=== PATIENT | male | born 1955 | race Hispanic/Latino ===

== ENCOUNTER 2018-04-03 08:34 | Inpatient (IN) | payer OTHER ==
--- NOTE | 2018-04-03 08:43 | ED PDOC ---
Arrival/HPI - General Chief Complaint: Altered Mental Status Time Seen by Provider: 04/03/18 08:40 Historian: Patient - History of Present Illness Narrative History of Present Illness (Text): 62 year old male, whose no significant past medical history, who presents to the emergency department via EMS complaining of right sided weakness, facial droop, and hypertensive crisis. Patient states on 04/01/18 at 1300hs, he experienced symptoms of weakness, dizziness, parasthesias and nausea [place] the cruise ship. Evaluation from cruise ship physician revealed patient was seen on 04/02/18. An EKG performed at that time revealed new onset atrial fibrillation & he was evaluated in ICU for 24hrs, where he received aspirin, ramipril, labetalol, ondansetron, cephalexin, and ketorolac, until he remained stable for transfer to a [facility] medical facility. His noted no change in his R upper extremity weakness and dysarthria over the past 24 hrs. Patient was given 10mg of labetolol after SBP was found to be 180s prior to arrival. Time/Duration: < week (3 days) Symptom Onset: Gradual Symptom Course: Unchanged Activities at Onset: Light Context: Other (Cruise ship) Past Medical History - Provider Review Nursing Documentation Reviewed: Yes Family/Social History - Physician Review Nursing Documentation Reviewed: Yes Family/Social History: Unknown Family HX Allergies/Home Meds Allergies/Adverse Reactions: Allergies No Known Allergies Allergy (Verified 04/03/18 08:45) Home Medications: Home Meds Medication Instructions Recorded Confirmed No Known Home Med 04/03/18 04/03/18 Review of Systems - Physician Review All systems were reviewed & negative as marked: Yes - Review of Systems Constitutional: Normal Eyes: Normal ENT: Normal Respiratory: Normal. absent: SOB, Cough Cardiovascular: Normal. absent: Chest Pain Gastrointestinal: Normal. absent: Abdominal Pain Genitourinary Male: Normal. absent: Dysuria, Frequency Musculoskeletal: Normal. absent: Back Pain, Neck Pain Skin: Normal. absent: Rash Neurological: Dizziness, Speech Changes (slurred speech), Facial Droop (rt side facial droop), Other (rt side weakness) Endocrine: Normal Hemo/Lymphatic: Normal Psychiatric: Normal Physical Exam Vital Signs Reviewed: Yes Vital Signs Temp Pulse Resp BP Pulse Ox 04/03/18 11:26 98.2 F 86 18 157/83 H 92 L 04/03/18 09:30 82 18 146/82 93 L 04/03/18 08:40 97.7 F 83 106/76 91 L 04/03/18 08:38 97.7 F 86 18 106/76 97 Temperature: Afebrile Blood Pressure: Normal Pulse: Regular Respiratory Rate: Normal Appearance: Positive for: Well-Appearing, Non-Toxic, Comfortable Pain Distress: None Mental Status: Positive for: Alert and Oriented X 3 - Systems Exam Head: Present: Atraumatic, Normocephalic Pupils: Present: PERRL Extroacular Muscles: Present: EOMI Conjunctiva: Present: Normal Mouth: Present: Moist Mucous Membranes Neck: Present: Normal Range of Motion Respiratory/Chest: Present: Clear to Auscultation, Good Air Exchange. No: Respiratory Distress, Accessory Muscle Use Cardiovascular: Present: Regular Rate and Rhythm, Normal S1, S2. No: Murmurs Abdomen: No: Tenderness, Distention, Peritoneal Signs Back: Present: Normal Inspection Upper Extremity: Present: Normal Inspection. No: Cyanosis, Edema Lower Extremity: Present: Normal Inspection. No: Edema Neurological: Present: GCS=15, CN II-XII Intact, Other (Right sided upper extremity weakness, slight dysarthria) Skin: Present: Warm, Dry, Normal Color. No: Rashes Psychiatric: Present: Alert, Oriented x 3, Normal Insight, Normal Concentration Medical Decision Making ED Course and Treatment: 04/03/18 09:01 Impression: 62 year old male presents to the Emergency department complaining of rt sided weakness, facial droop, and HTN crisis. Differential Diagnoses Include But Are not Limited to: CVA/TIA(secondary to possible PFO) Hypertensive Emergency/Urgency Atrial Fibrillation Plan: -- Labs -- Troponin -- CT head -- EKG -- IVF -- CXR -- Reassess and disposition Progress Notes: 04/03/18 09:46 Patient noted to be in rate controlled Atrial fibrillation 91 bpm. Imaging reviewed with [facility] revealing age appropriate cortical atrophy. Pending lab results. 04/03/18 10:53 Labs reviewed. Spoke to Dr. Abarca(PCP) who will come down and evaluate patient in ED. He requests Dr. Melba Rice(neurology) & Dr. Bashir(cardiology) for consult. Swallow study performed with patient unsuccessful. Will administer aspirin rectally. - Lab Interpretations Narrative Lab Interpretation (Text): 04/03/18 10:33 Chest X-ray reviewed, shows: IMPRESSION: Cardiomegaly. No acute pulmonary disease appreciable. No pulmonary vascular congestion. Lab Results: 04/03/18 09:40 04/03/18 09:40 Lab Results 04/03/18 09:46: POC Glucose (mg/dL) 115 H 04/03/18 09:40: Sodium 140, Potassium 4.4, Chloride 107, Carbon Dioxide 23, Anion Gap 15, BUN 19, Creatinine 1.1, Est GFR ( Amer) > 60, Est GFR (Non- Af Amer) > 60, Random Glucose 113 H, Calcium 8.9, Total Bilirubin 1.3, AST 27, ALT 30, Alkaline Phosphatase 57, Troponin I 0.04, Total Protein 7.6, Albumin 4.0 , Globulin 3.6, Albumin/Globulin Ratio 1.1, Triglycerides 243 H, Cholesterol 179 , LDL Cholesterol Direct 112, HDL Cholesterol 28 L 04/03/18 09:40: PT 12.6 H, INR 1.09, APTT 29.0 04/03/18 09:40: WBC 9.2, RBC 5.16, Hgb 15.3, Hct 46.7, MCV 90.5, MCH 29.7, MCHC 32.8, RDW 14.8 H, Plt Count 142, MPV 10.8, Gran % 74.1 H, Lymph % (Auto) 17.6 L , Angelina % (Auto) 7.9 H, Eos % (Auto) 0.3 L, Baso % (Auto) 0.1, Gran # 6.81 H, Lymph # (Auto) 1.6, Angelina # (Auto) 0.7 H, Eos # (Auto) 0.0, Baso # (Auto) 0.01 - RAD Interpretation Radiology Orders: 04/03/18 08:47 HEAD W/O CONTRAST [CT] Stat CHEST PORTABLE [RAD] Stat - Medication Orders Current Medication Orders: Amlodipine Besylate (Norvasc) 5 mg PO DAILY [facility] Last Admin: 04/04/18 08:16 Dose: 5 mg MAR Pulse and Blood Pressure Document 04/04/18 08:16 (Rec: 04/04/18 08:17 [id number]) Pulse Pulse Rate (60-90) 87 Blood Pressure Blood Pressure (100/60-150/90) 157/104 Aspirin (Aspirin Chewable) 81 mg PO DAILY [facility] Last Admin: 04/04/18 09:16 Dose: 81 mg Atorvastatin Calcium (Lipitor) 80 mg PO DIN [facility] Last Admin: 04/03/18 17:37 Dose: 80 mg Enoxaparin Sodium (Lovenox) 40 mg SC DAILY [facility] PRN Reason: Protocol Last Admin: 04/04/18 09:16 Dose: 40 mg Subcutaneous Administrations Document 04/04/18 09:16 VM (Rec: 04/04/18 09:16 VM [id number]) Injection Site MAR Injection Site Left Abdomen Charges for Administration # of Subcutaneous Administrations 1 Sodium Chloride (Sodium Chloride 0.45%) 1,000 mls @ 40 mls/hr IV .Q24H [facility] Last Admin: 04/03/18 11:25 Dose: 40 mls/hr eMAR Start Stop Document 04/03/18 11:25 [employer] (Rec: 04/03/18 11:26 [employer] [id number]) Intravenous Solution Start Date 04/03/18 Start Time 11:26 Labetalol HCl (Trandate) 10 mg IV Q6 PRN PRN Reason: Diastolic BP>96 Discontinued Medications Aspirin (Aspirin Supp) 300 mg STAT STA Stop: 04/03/18 10:52 Last Admin: 04/03/18 11:14 Dose: 300 mg MAR Pain/Vitals Document 04/03/18 11:14 [employer] (Rec: 04/03/18 11:14 [employer] [id number]) Pain Reassessment Is This A Pain ReAssessment? Yes Sodium Chloride (Sodium Chloride 0.9%) 1,000 mls @ 100 mls/hr IV .Q10H [facility] Last Admin: 04/03/18 09:11 Dose: 100 mls/hr eMAR Start Stop Document 04/03/18 09:11 [employer] (Rec: 04/03/18 09:12 [employer] [id number]) Intravenous Solution Start Date 04/03/18 Start Time 09:11 End Date 04/03/18 Ibuprofen (Motrin Tab) 400 mg PO ONCE ONE Stop: 04/04/18 02:27 Last Admin: 04/04/18 02:34 Dose: 400 mg MAR Pain/Vitals Document 04/04/18 02:34 CDL (Rec: 04/04/18 02:36 CD [id number]) Pain Reassessment Is This A Pain ReAssessment? No Sleep Is patient sleeping during reassessment? No Presence of Pain Presence of Pain Yes Pain Scale Used Pain Scale Used Numeric Location Left, Right or Bilateral Right Pain Location Body Site Foot Description Intermittent Intensity 6 Scale Used Numeric Alleviating Factors Medication Ondansetron HCl (Zofran Inj) 4 mg IVP STAT STA Stop: 04/03/18 11:06 Last Admin: 04/03/18 11:16 Dose: 4 mg IVP Administration Document 04/03/18 11:16 [employer] (Rec: 04/03/18 11:16 [facility] [place] [id number]) Charges for Administration # of IVP Administrations 1 NIHSS Scale ([place]) Time Performed: 09:00 - How Severe is the Stoke 24 hours post onset S/S Level of Consciousness: 0=Alert LOC to Questions: 0=Both comments correct LOC to commands: 0=Obeys both correctly Best Gaze: 0=Normal Visual: 0=No visual loss Facial: 2=Partial (lower face paralysis) Motor Arm - Left: 0=No drift Motor Arm - Right: 1=Drift noted before 10 sec Motor Leg - Left: 0=No drift Motor Leg - Right: 0=No drift Limb Ataxia: 0=Absent Sensory: 0=Normal Best Language: 1=Mild to moderate aphasia Dysarthia: 1=Mild to moderate slurring Extinction & Inattention (Neglect): 0=Normal, no object Score: 5 Risk Level: Mod Stroke Risk rTPA Inclusion/Exclusion - Refusal of Treatment Patient Refused Treatment: No - Inclusion Criteria for Altepase Patient is 18 years or Older: Yes The Clinical Diagnosis of Ischemic Stroke That is Causing a Potentially Disabling Neurological Deficit: Yes Time of Onset is Well Established to be Less Than 270 Minute Before Treatment Would Begin: No Risk/Benefit Discussed With Patient/Family Member Present: Yes - Exclusion Criteria for Altepase Uncontrolled Hypertension at Time of Treatment (Systolic BP above 185 or Diastolic BP above 110 mmHg): No Active Internal Bleeding: No Known Bleeding Diathesis Including but Not Limited to: Platelets Below 100,000/ mm,PTT Above 40 sec After Heparin Use, Current Use of Oral Anitcoagulant With INR Greater Than 1.7 or PT Greater Than 15 secs: No Evidence of an Intracranial Hemorrhage: No Evidence of Major Acute Infarct With Signs Greater Than 1/3 MCA Territory: No Suspicion of Subarachnoid Hemorrhage on Pretreatment Evaluation Even if CT Head Negative For Hemorrhage: No - Scribe Statement The provider has reviewed the documentation as recorded by the Scribe Yolie Dunn All medical record entries made by the Scribe were at my direction and personally dictated by me. I have reviewed the chart and agree that the record accurately reflects my personal performance of the history, physical exam, medical decision making, and the department course for this patient. I have also personally directed, reviewed, and agree with the discharge instructions and disposition. Disposition/Present on Arrival - Present on Arrival Any Indicators Present on Arrival: No History of DVT/PE: No History of Uncontrolled Diabetes: No Urinary Catheter: No History of Decub. Ulcer: No - Disposition Have Diagnosis and Disposition been Completed?: Yes Diagnosis: CVA (cerebral vascular accident), Atrial fibrillation Disposition: HOSPITALIZED Disposition Time: 10:14 Patient Plan: Admission Patient Problems: Current Active Problems Problem Status Onset CVA (cerebral vascular accident) Acute Atrial fibrillation Acute Condition: STABLE
[2018-04-03] MEDS ORDERED: Sodium Chloride 0.9% 1,000 ML IV SCH (09:00)
--- NOTE | 2018-04-03 09:44 | CT ---
Date of service: 04/03/2018 PROCEDURE: CT HEAD WITHOUT CONTRAST. HISTORY: R sided weakness facial droop since wednesday COMPARISON: None available. TECHNIQUE: Axial computed tomography images were obtained through the head/brain without intravenous contrast. Radiation dose: Total exam DLP = 919.86 mGy-cm. This CT exam was performed using one or more of the following dose reduction techniques: Automated exposure control, adjustment of the mA and/or kV according to patient size, and/or use of iterative reconstruction technique. FINDINGS: HEMORRHAGE: No intracranial hemorrhage. BRAIN: Good corticomedullary differentiation is seen. Proportional, diffuse expansion of the ventriculosulcal and cisternal spaces is appreciated with white matter lucency compatible with diffuse cerebral atrophy and chronic microangiopathy. No suspicious extra-axial fluid collection is identified and the midline brain anatomy appears grossly nonfocal as imaged. There is no mass effect throughout. VENTRICLES: Unremarkable. No hydrocephalus. CALVARIUM: Unremarkable. PARANASAL SINUSES: Unremarkable as visualized. No significant inflammatory changes. MASTOID AIR CELLS: Unremarkable as visualized. No inflammatory changes. OTHER FINDINGS: None. IMPRESSION: Age related neuro degenerative findings are identified which appear age-appropriate. No definite acute intracranial findings. Follow-up CT or MRI are available if clinically warranted.
[2018-04-03 09:52] LABS: INR 1.09; PROTHROMBIN TIME 12.6 SECONDS (9.4-12.5)
[2018-04-03 10:00] LABS: ALB/GLOB RATIO 1.1 (1.1-1.8); ALT/SGPT 30 U/L (7-56); AST/SGOT 27 U/L (17-59); BLOOD UREA NITROGEN 19 mg/dL (7-21); CALCIUM 8.9 mg/dL (8.4-10.5); GFR NON-AFRICAN AMERICAN > 60; HDL CHOLESTEROL 28 mg/dL (29-60)
--- NOTE | 2018-04-03 10:10 | RAD ---
Date of service: 04/03/2018 HISTORY: Code Stroke COMPARISON: Portable chest 04/03/2018. FINDINGS: LUNGS: No active pulmonary disease. PLEURA: No significant pleural effusion identified, no pneumothorax apparent. CARDIOVASCULAR: Cardiomegaly. No definite pulmonary vascular congestion. OSSEOUS STRUCTURES: No significant abnormalities. VISUALIZED UPPER ABDOMEN: Normal. OTHER FINDINGS: None. IMPRESSION: Cardiomegaly. No acute pulmonary disease appreciable. No pulmonary vascular congestion.
[2018-04-03 10:11] LABS: LDL CHOLESTEROL 112 mg/dL (0-129); TROPONIN I 0.04 ng/mL
[2018-04-03 10:15] LABS: BASO # 0.01 K/mm3 (0.0-2.0); BASO % 0.1 % (0.0-3.0); EOS % 0.3 % (1.5-5.0); GRAN # 6.81 (1.4-6.5); GRAN % 74.1 % (50.0-68.0); HEMOGLOBIN 15.3 g/dL (14.0-18.0); LYMPH # 1.6 (1.2-3.4); LYMPH % 17.6 % (22.0-35.0); MEAN CELL VOLUME 90.5 fl (80.0-105.0); MEAN CORPUSCULAR HEMOGLOBIN 29.7 pg (25.0-35.0); MEAN CORPUSCULAR HGB CONC 32.8 g/dl (31.0-37.0); MEAN PLATELET VOLUME 10.8 fl (7.0-11.0); MONO # 0.7 (0.1-0.6); MONO % 7.9 % (1.0-6.0); RBC 5.16 10^6/uL (3.5-6.1); RED CELL DISTRIBUTION WIDTH 14.8 % (11.5-14.5); WHITE BLOOD COUNT 9.2 10^3/ul (4.5-11.0)
[2018-04-03] MEDS: Enoxaparin 40 mg Syringe SC SCH (11:16)
[2018-04-03] MEDS: Sodium Chloride 0.45% 1,000 ML IV SCH (11:25)
[2018-04-03 11:53] VITALS: BMI 35.6
--- NOTE | 2018-04-03 15:53 | HP ---
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 He is a 62-year-old white man with no significant past medical history except he is a little bit overweight complaining of right-sided weakness, facial droop and hypertensive crisis. Some of the symptoms have seemed to subside a little bit. He is weak. He was dizzy. He had some nauseousness on the crew ship. He has been doing this for 24 to 48 hours already. An EKG performed on the ship showed new-onset atrial fibrillation. As far as he was concerned, he never had atrial fibrillation before. He was in the ICU already for 24 hours; given aspirin, ramipril, labetalol, Zofran cephalexin, Ketorolac for pain. He has no pain at this time, possibly a little bit of improvement of some of the weakness and changes in speech. His right upper extremity and right lower extremity are a little bit weaker than the left side, but maybe slightly improved and speech is a little bit better. He did get labetalol and the blood pressure was elevated in the 180s. Presently, the blood pressure is fine without medications here in the hospital emergency room. PAST MEDICAL HISTORY: He does not have any. ALLERGIES: NO KNOWN DRUG ALLERGIES. PAST SURGICAL HISTORY: No surgeries. FAMILY HISTORY: Nothing to speak of. MEDICATIONS: None. REVIEW OF SYSTEMS: No vision issues or hearing issues. He did have a speech issue and right facial droop which has resolved a bit. No shortness of breath or cough. No chest pain or palpitations that he could feel even though it shows atrial fibrillation on the telemetry monitor. He did have some nauseousness, it is better now. No abdominal pain. The nauseousness went away. No vomiting. No problems urinating. No back pain or neck pain. No rashes or ulcers. He was dizzy. He did have speech changes, slurred speech, facial droop and right-sided weakness. No sweating. No anxiety or depression. PHYSICAL EXAMINATION: VITAL SIGNS: He has a 97.7 temperature, 83 pulse, 106/76 blood pressure, although on the crew ship, it was as high as 180. His pulse ox is between 97 and 91, now it is 93. I will definitely get oxygen while he is here. GENERAL: He is well appearing, nontoxic, comfortable, resting in bed in the ER. He is alert and oriented x3, comfortable, no acute distress. No chest pain or shortness of breath. HEENT: His head is atraumatic, normocephalic. His extraocular muscles are intact. Pupils equal, reactive to light. Throat is moist. He smiles well. Tongue is midline. No facial droop at this time. HEART: Regular rate. Normal S1, S2. LUNGS: Clear to auscultation bilaterally. No wheezes, rhonchi or rales. ABDOMEN: Soft, morbidly obese, nontender. Positive bowel sounds. No guarding, no rebound, no CVA tenderness. EXTREMITIES: He is no edema in bilateral lower extremities. NEUROLOGICAL: GCS is 15. Cranial II-XII grossly intact. Normal speech. Right-sided weakness is present, maybe it is a 3/5 strength versus the left side, which is 5/5. Alert and oriented x3, pleasant. SKIN: Warm and dry. No apparent rashes or ulcers. He has got atrial fibrillation, CVA versus TIA, hypertensive emergency. he will have a consult with Cardiology and Neurology. He had tests done. He has 140 sodium, potassium 4.4, BUN 90, creatinine 1.1, GFR is greater than 60, sugar is 115 and 113, calcium is 8.9, total bili is 1.3, AST is 27, ALT 30, alkaline phosphatase 57. Troponin I 0.04. Total protein 7.6, albumin is 4, globulin 3.6. Triglyceride is a little bit high at 243. Cholesterol is good at 179, LDL is 112, HDL is 28. He has a 1.09 INR. His white count is 9.2, hemoglobin 15.3, hematocrit 46.7, platelets of 142. He had a head CAT scan which showed age-related neuro degenerative findings identified which appear age-appropriate. No definite acute intracranial findings and this is about 48 hours after the start of this. Chest x-ray showed cardiomegaly, no acute pulmonary disease. No pulmonary vascular congestion. He will be on oxygen and will be monitoring his blood pressure. We will get Physical Therapy involved, Neurology involved and Cardiology involved and hopefully, he will improve. He might need to go to a [facility] for physical therapy. He is from [place], [place] and we will see how he does. This is a patient who comes in with a CVA picture versus T TIA with right-sided weakness. He did have slurred speech, which has resolved. He has new-onset atrial fibrillation. Blood pressure, was a hypertensive emergency on a crew ship. Baljinder Abarca DO MTDD
--- NOTE | 2018-04-03 16:56 | MRI ---
Date of service: 04/03/2018 PROCEDURE: Brain MRI without contrast HISTORY: cva COMPARISON: Noncontrast head CT 04/03/2018. TECHNIQUE: Multiplanar, multisequence MR images of the brain were obtained without intravenous contrast enhancement. FINDINGS: The study is suboptimal due to technical failure related to power search. Only diffusion-weighted and T2 weighted axial sequences were acquired. No mass effect or cortical edema is identified and mild diffuse cerebral atrophy chronic microangiopathy are identified instead. However, there is restricted diffusion identified at the inferior right mid sella compatible with an acute subacute infarction. No mass effect at this time. No evidence of an acute or subacute cerebellar or cerebral infarct although a chronic lacune is seen the left cerebellum inferiorly. Additional sequences can be acquired when the MR system is repaired oral and transferred to outside institution. IMPRESSION: Suboptimal examination due to technical failure related to power search. An acute subacute inferior right medulla infarct is appreciated. No mass effect. Chronic lacune left cerebellum. Age related neuro degenerative changes primarily affecting the cerebrum. Full brain MRI can be performed once MR system is available or are transferred to outside institution.
[2018-04-04 06:26] LABS: HEMOGLOBIN 14.4 g/dL (14.0-18.0); MEAN CELL VOLUME 92.7 fl (80.0-105.0); MEAN CORPUSCULAR HGB CONC 31.3 g/dl (31.0-37.0); MEAN PLATELET VOLUME 10.6 fl (7.0-11.0); RBC 4.96 10^6/uL (3.5-6.1); WHITE BLOOD COUNT 8.7 10^3/ul (4.5-11.0)
[2018-04-04 06:41] LABS: ALB/GLOB RATIO 1.1 (1.1-1.8); ALBUMIN 3.8 g/dL (3.0-4.8); ALT/SGPT 23 U/L (7-56); AST/SGOT 24 U/L (17-59); BLOOD UREA NITROGEN 22 mg/dL (7-21); CALCIUM 8.7 mg/dL (8.4-10.5); GFR NON-AFRICAN AMERICAN > 60
--- NOTE | 2018-04-04 08:23 | CON ---
DATE: 04/03/2018 CHIEF COMPLAINT: Right-sided weakness, right facial droop. HISTORY OF PRESENT ILLNESS: A 62-year-old man with no significant past medical history. He was on a cruise ship when he started having some dizziness and felt confused and started to have some right-sided weakness, right facial droop and also found elevated systolic and diastolic blood pressures on the ship, who was brought into the hospital, was noted to have elevated systolic and diastolic blood pressures and also had right upper extremity weakness with some dysarthria. On Neurology exam, currently still has some right pronator drift and some very mild dysarthria but follow simple commands. PAST MEDICAL HISTORY: As above. SOCIAL HISTORY: No illicit drug use, smoking or EtOH abuse. REVIEW OF SYSTEMS: A 14-point review of system is negative except as per the HPI. FAMILY HISTORY: Noncontributory. ALLERGIES: NO KNOWN DRUG ALLERGIES. MEDICATIONS: Reviewed by nurse per reconciliation sheet. LABORATORY DATA: Sodium is 140, potassium 4.4, chloride of 107, carbon dioxide of 23, BUN 19, creatinine 1.1. Random glucose of 113. Triglycerides 243, LDL 112, HDL is 20, which is low. PHYSICAL EXAMINATION: GENERAL: The patient is sitting up in bed, in no acute distress. VITAL SIGNS: Temperature 97.7, pulse rate 84, blood pressure 138/98, respiratory rate 19, oxygen saturation 94% via room air. HEENT: Atraumatic, normocephalic. PERRLA. Extraocular muscles intact. NECK: Supple. No JVD. No adenopathy noted. LUNGS: Clear to auscultation. No adventitious sounds. HEART: S1, S2. Normal rate and rhythm. No murmurs, rubs or gallops. ABDOMEN: Soft, nontender and nondistended. Bowel sounds are present. EXTREMITIES: No clubbing. No cyanosis. Peripheral pulses 2+ felt bilaterally. NEUROLOGIC: The patient is alert and oriented to person, place, month and year. His speech is slightly dysarthric. No aphasia noted. Motor exam: Has a right pronator drift when compared to the left. Moves all extremities equally except for a mild 4+/5 right-sided weakness when compared to the left. Right toes are upgoing. Sensory exam: Light touch, pinprick, proprioception and vibration are intact except for decreased light touch sensation on the right side of the face when compared to the left. Coordination: [id number] intact. No dysmetria noted. Gait is deferred for now. ASSESSMENT AND PLAN: This is a 62-year-old man with no significant past medical history, was on a cruise ship, had dizziness and dysarthria in confusional state with right-sided upper extremity weakness and right facial droop, who was brought to the hospital. CAT scan of the head showed no acute intracranial abnormality. Based on his neurological exam, his left anterior lacunar infarct secondary to diffuse atherosclerotic disease, uncontrolled hypertension. At this time, we will recommended; 1. Aspirin 81, atorvastatin 80 for 21 days then reduce to 40 mg. 2. MRI of the brain and head as well as MRI of the neck to assess for any structural abnormalities causing the stroke. 3. Keep his systolic blood pressure 120s over 24 hours. 4. Keep his systolic blood pressure between 130s to 140s and diastolics 70s to 80s. 5. Physical therapy, Occupational therapy evaluation and speech therapy. 6. Echocardiogram and follow up and continue current present medical management. Thank you for this consult. Umesh Rice MD
--- NOTE | 2018-04-04 09:02 | PN ---
DATE: 04/04/2018 SUBJECTIVE: I saw him resting comfortably in bed. He slept fairly well. He still has the same deficit on the right side as he did yesterday. He is on aspirin, Lipitor, Lovenox and IV fluid and I added Norvasc this morning because his blood pressure was a little elevated. PHYSICAL EXAMINATION: VITAL SIGNS: He has a 97.9 temp, 86 pulse, 157/104 blood pressure, 20 respiratory rate, 94% O2 sat on room air. He was given Norvasc this morning 5 mg hoping for the blood pressure to decrease. Otherwise, we will give him some labetalol. Waiting for Cardiology to see him. HEENT: Head is atraumatic, normocephalic. GENERAL: He is alert and talking. HEART: Regular rate. LUNGS: Decreased breath sounds. ABDOMEN: Soft, nontender. Positive bowel sounds. EXTREMITIES: No edema, but the right side is weaker. LABORATORY DATA: He has 8.7 white count, 14.4 hemoglobin, 46 hematocrit with 121 platelets. He has a 141 sodium, potassium 4.5, BUN 42, creatinine 1.2, GFR is greater than 60, sugar is 103, calcium is 8.7, total bili is 1.5, AST is 24, ALT is 23, alk phos 58, total protein is 7.3. The MRI of the brain was just redone. The first one showed inappropriate power for the MRI to be done correctly, so it was redone. ASSESSMENT AND PLAN: Neurology is seeing the patient. Waiting for Cardiology to see the patient. I am also trying to adjust medicines for his elevated blood pressure. It was just given a stat dose of Norvasc 5. If that does not do it, I will add labetalol until Cardiology was seen. He is here with a new stroke, hypertension, atrial fibrillation. Baljinder Abarca DO
[2018-04-04] MEDS: Enoxaparin 40 mg Syringe SC SCH (09:16)
--- NOTE | 2018-04-04 12:34 | PN ---
DATE: 04/04/2018 NEUROLOGY FOLLOWUP CHIEF COMPLAINT: Followup for right-sided weakness, right facial droops. SUBJECTIVE: The patient currently has some mild residual dysarthria and right pronator drift. 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 He had elevated diastolic blood pressure this morning. Awaiting Cardiology input for medication adjustment. PAST MEDICAL HISTORY: No significant past medical history. SOCIAL HISTORY: No illicit drug use, smoking or EtOH abuse at this time except for social drinker. REVIEW OF SYSTEMS: Fourteen-point review of systems is negative except as per the HPI. FAMILY HISTORY: Noncontributory. ALLERGIES: NO KNOWN DRUG ALLERGIES. MEDICATIONS: Reviewed by nurses' reconciliation sheet. LABORATORY DATA: Sodium is 141, potassium 4.4, chloride , carbon dioxide 26, BUN of 22, creatinine 1.2, random glucose of 103, A1c is 5.9. PHYSICAL EXAMINATION: VITAL SIGNS: Temperature of 97.9, pulse rate of 86, blood pressure of 146/92, respiratory rate of 20, oxygen saturation 95% by room air. GENERAL: The patient is sitting up in bed, in no acute distress. HEENT: Atraumatic, normocephalic. PERRLA. Extraocular muscles intact. NECK: Supple. No JVD, no adenopathy noted. LUNGS: Clear to auscultation. No adventitious sounds. HEART: S1, S2. Normal rate and rhythm. No murmurs, rubs or gallops. ABDOMEN: Soft, nontender and nondistended. Bowel sounds are present. EXTREMITIES: No clubbing. No cyanosis. Peripheral pulses 2+ felt bilaterally. NEUROLOGIC: The patient is alert and oriented to person, place, month and year. Speech is slightly dysarthric. No aphasia noted. Motor exam has right pronator drift when compared to left. Moves all extremities equally except for a mild 4+/5 right-sided weakness when compared to the left. Right toes are upgoing. Sensory exam: Light touch, pinprick, proprioception and vibration are intact except for decreased light touch sensation on right side of the face when compared to the left. Coordination: [id number] intact. No dysmetria noted. Gait is deferred for now. ASSESSMENT AND PLAN: This is a 62-year-old man with no significant past medical history, who was on a cruise ship, had acute onset of dizziness and dysarthria and questionable confusional state with right-sided upper extremity weakness and right facial droop, who was brought to the hospital. 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 At this time, I recommend, 1. Aspirin 81, atorvastatin 80 mg for 21 days, then it can reduce to 40 mg. 2. Keep systolic blood pressures between 130s-140s systolic and diastolic 70-80s. 3. Cardiology evaluation for blood pressure adjustment and echocardiogram. 4. Physical therapy, occupational therapy evaluation and recommends that he got to physical therapy at a place nearby him in [facility]. Thank you for this consult. Umesh Rice MD
[2018-04-04] MEDS: Labetalol 5 mg/ml Inj 20ML IV PRN (13:25)
--- NOTE | 2018-04-04 14:43 | MRI ---
Date of service: 04/03/2018 PROCEDURE: MRI BRAIN WITHOUT CONTRAST HISTORY: cva COMPARISON: Earlier same day TECHNIQUE: Multiplanar, multisequence MR images of the brain were obtained without intravenous contrast enhancement. FINDINGS: HEMORRHAGE: None DWI: Sagittal diffusion imaging was performed showing an area of restricted diffusion in the right side of the medulla consistent with acute infarct BRAIN PARENCHYMA: Infarct also visible on FLAIR and T2 imaging VENTRICLES: Unremarkable. No hydrocephalus. CRANIUM: Unremarkable. ORBITS: Grossly unremarkable. PARANASAL SINUSES/MASTOIDS: Clear VASCULAR SYSTEM: Skull base flow voids intact. OTHER FINDINGS: The report concurs with the preliminary [facility] report IMPRESSION: Acute infarct right side of the medulla
--- NOTE | 2018-04-04 14:47 | MRI ---
Date of service: 04/03/2018 PROCEDURE: Magnetic Resonance Angiography Brain HISTORY: cva COMPARISON: None available. TECHNIQUE: 3D time of flight MR angiography of the intracranial arteries was performed. Rotating maximum intensity projection images were generated. FINDINGS: INTERNAL CAROTID ARTERIES: Unremarkable. The skull base, petrous, cavernous and supraclinoid segments are bilaterally widely patient. ANTERIOR CEREBRAL ARTERIES: Unremarkable. A1 and A2 segments are widely patent. Smaller distal branches unremarkable, as visualized. MIDDLE CEREBRAL ARTERIES: Unremarkable. M1 and M2 segments are widely patent. Perisylvian branches grossly symmetric. POSTERIOR CIRCULATION: Basilar Artery: Unremarkable. Distal Vertebral Arteries: There is no flow in the distal intracranial segment of the right vertebral artery. This corresponds to the medullary infarcts seen on MRI Posterior Cerebral Arteries: Unremarkable. Posterior Inferior Cerebellar Arteries: Unremarkable. ANEURYSM/ VASCULAR MALFORMATIONS: None. OTHER FINDINGS: The report concurs with the preliminary [facility] report IMPRESSION: There is no flow in the distal intracranial segment of the right vertebral artery. This corresponds to the medullary infarct seen on MRI
--- NOTE | 2018-04-04 14:50 | MRI ---
Date of service: 04/04/2018 PROCEDURE: MR Angiography of the neck without contrast HISTORY: cva COMPARISON: None available. TECHNIQUE: 3D Eyuf-bi-irsvew angiography of the neck was performed. Rotating maximum intensity projection images of the cervical carotid and vertebral arteries were generated. The origins of the common carotid arteries were not visualized, which is a limitation inherent to the non-contrast time of flight technique. FINDINGS: RIGHT CAROTID ARTERIES: Common Carotid Artery: Normal. Carotid Bifurcation: Normal. Internal Carotid Artery:Normal. External Carotid Artery (proximal branches): Normal. LEFT CAROTID ARTERIES: Common Carotid Artery: Normal. Carotid Bifurcation: Normal. Internal Carotid Artery:Normal. External Carotid Artery (proximal branches): Normal. VERTEBRAL ARTERIES: Right Vertebral Artery: Not visualized. This could be occluded or hypoplastic. Left Vertebral Artery: Normal. OTHER FINDINGS: None. IMPRESSION: Right Vertebral Artery: Not visualized. This could be occluded or hypoplastic.
--- NOTE | 2018-04-04 16:02 | CARD ---
APPROVED REPORT Date of service: 04/03/2018 EKG Measurement Heart [id number] <Conclusion> Atrial fibrillation ST & T wave abnormality, consider lateral ischemia or digitalis effect Prolonged QT Abnormal ECG
[2018-04-04] MEDS: Sodium Chloride 0.45% 1,000 ML IV SCH ×2 (17:06→17:11)
--- NOTE | 2018-04-04 19:39 | CARD ---
APPROVED REPORT Date of service: 04/04/2018 EXAM: Two-dimensional and M-mode echocardiogram with Doppler and color Doppler. INDICATION CVA/TIA BUBBLE STUDY 2D DIMENSIONS Left Atrium (2D)5.5 (1.6-4.0cm)IVSd1.7 (0.7-1.1cm) LVDd5.4 (3.9-5.9cm)PWd1.5 (0.7-1.1cm) LVDs4.4 (2.5-4.0cm)FS (%) 17.7 % LVEF (%)36.5 (>50%) M-Mode DIMENSIONS Aortic Root4.30 (2.2-3.7cm)Aortic Cusp Exc.1.70 (1.5-2.0cm) Aortic Valve AoV Peak Uhaiahse743.0cm/sAoV VTI29.8cmAO Peak GR.8mmHg LVOT Peak Bkvcggyj76.0cm/sLVOT VTI18.10cmAO Mean GR.5mmHg Mitral Valve E/A ratio0.0 TDI E/Lateral E'0.0E/Medial E'0.0 Pulmonary Valve PV Peak Qpoqqxui92.2cm/sPV Peak Grad.1mmHg Tricuspid Valve TR Peak Lkxvkvvf431uo/sRAP SWLORSOI20viLxBN Peak Gr.26mmHg [id number] LEFT VENTRICLE The left ventricle is normal size. There is mild concentric left ventricular hypertrophy. The systolic function is moderately impaired.EF-35% There is mild to moderate hypokinesis in the mid-anterolateral wall. Transmitral Doppler flow pattern is Grade III-reversible restrictive diastolic dysfunction. No left ventricle thrombus noted on this study. There is no ventricular septal defect visualized. There is no left ventricular aneurysm. There is no mass noted in the left ventricle. RIGHT VENTRICLE The right ventricle is mildly dilated. There is normal right ventricular wall thickness. Systolic function is mildly to moderately reduced. ATRIA The left atrium is mildly dilated. The right atrium is mildly dilated. The interatrial septum is intact with no evidence for an atrial septal defect., by colr flow and Bubble study. AORTIC VALVE The aortic valve is moderately thickened but opens well. There is trace to mild aortic regurgitation. There is mild valvular aortic stenosis. There is no aortic valvular vegetation. MITRAL VALVE The mitral valve is thickened but opens well. Mitral annular calcification is moderate. Mitral regurgitation is moderate. There is no mitral valve stenosis. There is no evidence of mitral valve prolapse. TRICUSPID VALVE The tricuspid valve leaflets are thickened , but open well. There is mild po moderate tricuspid regurgitation.RVSP-36 mmof hg. There is no tricuspid valve stenosis. There is no tricuspid valve prolapse or vegetation. PULMONIC VALVE The pulmonic valve is not well visualized. GREAT VESSELS The aortic root is normal in size. The ascending aorta is normal in size. The pulmonary artery is normal. The IVC is normal in size and collapses >50% with inspiration. PERICARDIAL EFFUSION There is no pleural effusion. There is no pericardial effusion. <Conclusion> The left ventricle is normal size. There is mild concentric left ventricular hypertrophy. The systolic function is moderately impaired.EF-35% There is trace to mild aortic regurgitation. There is mild valvular aortic stenosis. Mitral regurgitation is moderate. There is mild po moderate tricuspid regurgitation.RVSP-36 mmof hg. The IVC is normal in size and collapses >50% with inspiration. Bi atrial enlargement. The interatrial septum is intact with no evidence for an atrial septal defect., by colr flow and Bubble study.
--- NOTE | 2018-04-04 20:33 | CON ---
DATE: 04/04/2018 CARDIOLOGY CONSULTATION REASON FOR CONSULTATION: New onset atrial fibrillation as well as acute CVA. HISTORY OF PRESENT ILLNESS: The patient is 62 years old male who has no significant past medical history, on no medications. He experienced a right-sided weakness, right facial drooping and right facial numbness as well as hypertensive crisis while on the cruise ship on Wednesday and the patient was kept in the medical unit of the cruise ship. The patient was found to be in atrial fibrillation on the cruise ship. Patient is unaware of any prior history of atrial fibrillation or hypertension; however, he did not seek medical attention for many years. The patient was treated on the cruise ship with aspirin, ramipril, labetalol, cephalexin and remained until he was transferred to [facility]. The patient did report speech difficulty; however, the had no difficulty understanding and communicating with him. The patient denies any prior history of stroke in the past. SOCIAL HISTORY: Patient is nonsmoker. He is , lives with his . CURRENT MEDICATIONS: Aspirin 81 mg once a day, Lipitor 80 mg once a day, Lovenox 40 mg subcutaneously once a day, Norvasc 5 mg once a day, labetalol 10 mg intravenously every 6 hours p.r.n., half normal saline at 40 mL an hour. REVIEW OF SYSTEMS: The patient did experience diaphoresis and nausea at the time of onset of his symptoms on the cruise ship. He denies substernal chest pain. PHYSICAL EXAMINATION: GENERAL: The patient is a middle aged male who does not appear to be in acute distress. VITAL SIGNS: Blood pressure most recent one 157/104, heart rate 87, temperature 97.9, respiration 20. HEENT: Normocephalic. CHEST: Clear. HEART: S1 and S2 regular. ABDOMEN: Soft. EXTREMITIES: No edema. LABORATORY DATA: Today's hemoglobin and hematocrit 14.4 and 46, white count and platelet count are within normal limits. Today's SMA-7: Sodium 141, potassium 4.5, chloride 106, CO2 26, glucose 103, BUN 22, creatinine 1.2. Onset of troponin is 0.04. Triglycerides elevated to 143. Total cholesterol 179, LDL cholesterol 112, HDL cholesterol 28. INR is 1.09, PTT 29. EKG revealed atrial fibrillation at a rate of 91. LVH repolarization changes. Brain MRI without contrast suboptimal examination due to technical failure related to power surge. Acute/subacute inferior right middle infarct is appreciated. No mass effect. Chronic lacunar left cerebellum. 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 Repeat brain MRI was performed. The report is still pending as well as the report of head and neck MRA. ASSESSMENT: 1. Acute/subacute inferior right middle infarct. 2. Atrial fibrillation. 3. Hypertension. 4. Hyperlipidemia. RECOMMENDATIONS: Continue aspirin 81 mg once a day, Lipitor at 80 mg once a day, Lovenox 40 mg subcutaneously once a day, labetalol 10 mg intravenously every 6 hours. I will administer one dose of Lasix 40 mg IV push. I will follow echocardiographic study performed today and follow repeat MRI prior to considering full anticoagulation regimen once cleared by the neurologist. Phill Lara MD [facility] # [id number]
[2018-04-05 06:42] LABS: MEAN CELL VOLUME 91.6 fl (80.0-105.0); MEAN CORPUSCULAR HEMOGLOBIN 29.4 pg (25.0-35.0); MEAN CORPUSCULAR HGB CONC 32.1 g/dl (31.0-37.0); MEAN PLATELET VOLUME 10.3 fl (7.0-11.0); RBC 5.11 10^6/uL (3.5-6.1); RED CELL DISTRIBUTION WIDTH 14.6 % (11.5-14.5); WHITE BLOOD COUNT 7.9 10^3/ul (4.5-11.0)
[2018-04-05 07:09] LABS: ALB/GLOB RATIO 1.1 (1.1-1.8); ALBUMIN 4.1 g/dL (3.0-4.8); ALT/SGPT 23 U/L (7-56); AST/SGOT 24 U/L (17-59); BLOOD UREA NITROGEN 27 mg/dL (7-21); CALCIUM 8.8 mg/dL (8.4-10.5); GFR NON-AFRICAN AMERICAN > 60
[2018-04-05] MEDS: Enoxaparin 120 mg Syringe SC SCH ×2 (09:32→17:56)
--- NOTE | 2018-04-05 13:56 | PN ---
DATE: 04/05/2018 SUBJECTIVE: He is resting in bed. He is still a little bit off mentally. His blood pressure is still a little bit high. I will increase his blood pressure medication today. He is here with his . No new symptoms. He is eating. OBJECTIVE: VITAL SIGNS: He has 98.6 temperature, 80 pulse, 168/98 blood pressure, 20 respiratory rate, 94% O2 sat on room air. HEENT: His head is atraumatic, normocephalic. HEART: Regular rate. LUNGS: Decreased breath sounds. ABDOMEN: Soft, obese. EXTREMITIES: No edema, but the right side is still a bit weak. He is currently on aspirin; Cozaar, I increased it from 25 to 50; Lipitor 80; Lovenox twice a day; Motrin; Norvasc, it was 5 and I am going to bump it up 10. He is on IV fluids and Trandate. I may want to discontinue the IV fluids also. LABORATORY DATA: He has 141 sodium, potassium 4.2, BUN 27, creatinine is 1. GFR is greater than 60. Sugar is 108, calcium is 8.8. Total bilirubin is 2.2. AST is 24, ALT is 23, alkaline phosphatase is 3. Total protein 7.7. Troponin I was 0.04, triglycerides are 243. His cholesterol is 179. His INR is 1.09. He has a 7.9 white count, 15 hemoglobin, 46.8 hematocrit with 124 platelets. He is being seen by Cardiology and Neurology. He has got his blood pressure out of control, placed him on some medications. I will wait and see what Neurology states about his carotids. In the meantime, we are going to increase his medications to decrease his blood pressure and need physical therapy probably at acute rehab or subacute rehab if it is up in [place] depending on what his insurance Check his labs tomorrow, get him out of bed to chair. We will decrease his IV fluids. Baljinder Abarca DO [facility]ITAL[facility]
--- NOTE | 2018-04-05 14:51 | CP.PCM.PCO ---
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 c/w asa and stain
[2018-04-05] MEDS: Labetalol 5 mg/ml Inj 20ML IV PRN (15:28)
--- NOTE | 2018-04-05 19:55 | PN ---
DATE: 04/05/2018 CARDIOLOGY FOLLOWUP SUBJECTIVE: The patient is in bed, in no distress. PHYSICAL EXAMINATION VITAL SIGNS: Blood pressure is 159/97, the heart rate is in the 90s. NECK: Negative JVD. LUNGS: Without rales. HEART: Reveals S1 and S2. EXTREMITIES: Without edema. Echocardiogram reveals an ejection fraction of 36% with mild LVH. There is mild valvular aortic stenosis. IMPRESSION: 1. Cerebrovascular accident. 2. New-onset atrial fibrillation. 3. Dilated cardiomyopathy. 4. Mild aortic stenosis. 5. Hypertension. PLAN: Given these findings, I agree with adding an ARB to his regimen. I had an extensive discussion with the patient and his about the echo findings with a weak heart and valvular heart disease. In addition, I have discussed with them about the need to follow up with a car repairman when they leave the hospital to go back home in [facility] and will need testing to rule out significant coronary disease as a cause of his cardiomyopathy. I agree with adding his ARB. We will follow his blood pressure. Sean Bashir MD
[2018-04-06] MEDS: Labetalol 5 mg/ml Inj 20ML IV PRN ×3 (04:37→15:14)
[2018-04-06 06:03] VITALS: O2SAT 93
[2018-04-06 07:13] LABS: HEMOGLOBIN 15.7 g/dL (14.0-18.0); MEAN CORPUSCULAR HEMOGLOBIN 29.5 pg (25.0-35.0); MEAN CORPUSCULAR HGB CONC 32.4 g/dl (31.0-37.0); MEAN PLATELET VOLUME 10.9 fl (7.0-11.0); RBC 5.32 10^6/uL (3.5-6.1); RED CELL DISTRIBUTION WIDTH 14.3 % (11.5-14.5); WHITE BLOOD COUNT 9.1 10^3/ul (4.5-11.0)
[2018-04-06 07:31] LABS: ALB/GLOB RATIO 1.1 (1.1-1.8); ALBUMIN 4.2 g/dL (3.0-4.8); ALT/SGPT 21 U/L (7-56); AST/SGOT 28 U/L (17-59); BLOOD UREA NITROGEN 25 mg/dL (7-21); CALCIUM 9.2 mg/dL (8.4-10.5); GFR NON-AFRICAN AMERICAN > 60
[2018-04-06] MEDS: Enoxaparin 120 mg Syringe SC SCH (10:16)
[2018-04-06 12:17] VITALS: BP 145/99; PULSE 84; RESP 18; TEMP 97.8
--- NOTE | 2018-04-06 14:01 | DS ---
HISTORY OF PRESENT ILLNESS: He is resting comfortably in bed. His is with him at his side. He is going to be transferred today to a rehab facility in [place], which is close to the house. He comfortably understands the plan. PHYSICAL EXAMINATION: VITAL SIGNS: He has a 98.3 temp; 80 pulse; 156/97 blood pressure, also went up to 158/107 blood pressure. I increased his Diovan from 50 mg to 100 mg for this morning. He has got 20 respiratory rate, 93% O2 sat on room air. HEENT: His head is atraumatic, normocephalic. HEART: Regular rate. LUNGS: Decreased breath sounds, but clear. ABDOMEN: Soft, obese, nontender. EXTREMITIES: No edema. The right side is still weak, especially in the arm. ASSESSMENT AND PLAN: He is going to be going for physical therapy before he can go home. He had a cerebrovascular accident. He had new onset atrial fibrillation. He had dilated cardiomyopathy, aortic stenosis, hypertension, high cholesterol and hopefully he will improve. I increased his blood pressure medications before he goes home. Baljinder Abarca DO
--- NOTE | 2018-04-06 14:34 | PN ---
DATE: 04/06/2018 CARDIOLOGY FOLLOWUP SUBJECTIVE: The patient is comfortable in bed. No distress. OBJECTIVE: VITAL SIGNS: Blood pressure is down to 145/95. NECK: Negative JVD. LUNGS: Without rales. HEART: Reveal S1, S2. EXTREMITIES: Without edema. LABORATORY DATA: Hemoglobin is 15.7. BUN and creatinine are unremarkable. IMPRESSION: 1. Status post cerebrovascular accident. 2. Atrial fibrillation. 3. Dilated cardiomyopathy. 4. Mild aortic stenosis. 5. Hypertension. Given these findings, the addition of an ARB has improved his blood pressure. The patient will need anticoagulation for his discharge. I have discussed with the patient and family about the need for anticoagulation as well as to follow up with a mechanical adjuster in [facility]. Sean Bashir MD
== END 2018-04-06 18:22 | DRG 65 ==
LOC: ED 08:34 → ERH 10:14 → 2RNO 11:46
PROVIDERS: ADMIT Family Medicine; ATTEND Family Medicine
DX: I63.9 Cerebral infarction, unspecified (principal); I16.1 Hypertensive emergency; I42.0 Dilated cardiomyopathy; E78.00 Pure hypercholesterolemia, unspecified; E78.5 Hyperlipidemia, unspecified; I10 Essential (primary) hypertension; I35.0 Nonrheumatic aortic (valve) stenosis; I48.91 Unspecified atrial fibrillation; R29.810 Facial weakness; Z79.82 Long term (current) use of aspirin